=== PATIENT | male | born 1985 | race Caucasian/White ===

== ENCOUNTER 2016-11-03 11:25 | Emergency (ER) | payer BC ==
--- NOTE | 2016-11-03 13:15 | DIAGNOSTIC IMAGING REPORT ---
PROCEDURE: US VENOUS - RIGHT EXT INDICATION: PAIN TECHNIQUE: Duplex sonography of the deep venous system in the right lower extremity was performed. Compression and augmentation techniques were used. COMPARISON: None. FINDINGS: Each interrogated segment of deep vein from the common femoral vein into the calf veins demonstrates normal compressibility, augmentation and/or color Doppler flow without filling defect. No evidence of significant soft-tissue edema, soft-tissue mass or cyst. IMPRESSION: 1. No deep venous thrombosis in the right lower extremity.
--- NOTE | 2016-11-03 14:19 | ED ORDER SUMMARY ---
..... Patient: CARLY GOMEZ OrderSheet [facility] VisitID: [id number] [address] [place] [address] 31y, M Registration Date/Time: 11/03/2016 ORDER SHEET Weight: 70.3 kg (stated) Allergies: None GENERAL ORDERS: CBC w Diff Urgent (11:49 11/03/2016 Huan TUCKER) (Ack 11:50 Jose Daniel) (11:58 JSanders R.N.) CMP Urgent (11:49 11/03/2016 Huan TUCKER) (Ack 11:50 Jose Daniel) (11:58 JSanders R.N.) PT with INR Urgent (11:49 11/03/2016 Huan TUCKER) (Ack 11:50 Jose Daniel) (11:58 JSanders R.N.) PTT Urgent (11:49 11/03/2016 Huan TUCKER) (Ack 11:50 Jose Daniel) (11:58 JSanders R.N.) Amylase Urgent (11:49 11/03/2016 Huan TUCKER) (Ack 11:50 Jose Daniel) (11:58 JSanders R.N.) Lipase Urgent (11:49 11/03/2016 Huan TUCKER) (Ack 11:50 Jose Daniel) (11:58 JSanders R.N.) D-Dimer Urgent (11:49 11/03/2016 Huan TUCKER) (Ack 11:50 Jose Daniel) (11:58 JSanders R.N.) US Venous Right Urgent (11:49 11/03/2016 Huan TUCKER) (Ack 11:50 Jose Daniel) (13:08 JSanders R.N.) MEDICATION ORDERS: IV FLUIDS: IV Saline Lock (11:49 11/03/2016 Huan TUCKER) (11:58 JSanders R.N.) ORDER SHEET NOTES: [Electronically signed by Jenn Casey R.N. (14:31 11/03/2016)] [Electronically signed by Paul Leone MD (22:02 11/04/2016)] [Electronically locked/signed by Jenn Casey R.N. (14:31 11/03/2016)]
--- NOTE | 2016-11-03 14:19 | ED ORDER SUMMARY ---
..... Patient: CARLY GOMEZ OrderSheet [facility] VisitID: [id number] [address] [place] [address] 31y, M Registration Date/Time: 11/03/2016 ORDER SHEET Weight: 70.3 kg (stated) Allergies: None GENERAL ORDERS: CBC w Diff Urgent (11:49 11/03/2016 Huan TUCKER) (Ack 11:50 Jose Daniel) (11:58 JSanders R.N.) CMP Urgent (11:49 11/03/2016 Huan TUCKER) (Ack 11:50 Jose Daniel) (11:58 JSanders R.N.) PT with INR Urgent (11:49 11/03/2016 Huan TUCKER) (Ack 11:50 Jose Daniel) (11:58 JSanders R.N.) PTT Urgent (11:49 11/03/2016 Huan TUCKER) (Ack 11:50 Jose Daniel) (11:58 JSanders R.N.) Amylase Urgent (11:49 11/03/2016 Huan TUCKER) (Ack 11:50 Jose Daniel) (11:58 JSanders R.N.) Lipase Urgent (11:49 11/03/2016 Huan TUCKER) (Ack 11:50 Jose Daniel) (11:58 JSanders R.N.) D-Dimer Urgent (11:49 11/03/2016 Huan TUCKER) (Ack 11:50 Jose Daniel) (11:58 JSanders R.N.) US Venous Right Urgent (11:49 11/03/2016 Huan TUCKER) (Ack 11:50 Jose Daniel) (13:08 JSanders R.N.) MEDICATION ORDERS: IV FLUIDS: IV Saline Lock (11:49 11/03/2016 Huan TUCKER) (11:58 JSanders R.N.) ORDER SHEET NOTES: [Electronically signed by Jenn Casey R.N. (14:31 11/03/2016)] [Electronically signed by Paul Leone MD (22:02 11/04/2016)] [Electronically locked/signed by Jenn Casey R.N. (14:31 11/03/2016)]
--- NOTE | 2016-11-03 14:19 | ED NURSING NOTES ---
Clinical Report - Nurses [facility] [place] [address] [place] [address] 11/03/2016 11:28 [id number] TRI[facility] Triage time 11:34 Nov 03 2016. Acuity: LEVEL 4. Chief Complaint: RIGHT LOWER EXTREMITY PAIN. Location of symptoms- right thigh, right knee and right leg (Patient complaining of pain medial right leg). 11:40 11/03/16. SEPSIS SCREEN: Sepsis Screen. Negative (no infection suspected/documented). RICKEY COMA SCORE: Rickey Coma Scale: 15- eyes open spontaneously (4); best verbal response- oriented x 4 (5); best motor response- obeys commands (6). --11:40 Jenn Casey R.N. 11:34 11/03/16. BP: 118/65 (regular adult cuff) taken on the left arm, while sitting. HR: 66. RR: 16 (regular). O2 saturation: 100% on room air. Temp: 97.9 F (oral). Pain level now: 12/20. --11:40 Jenn Casey R.N. Weight: 70.3 kg stated. Height/Length: 67 inches Per Patient. BMI: 24.3. --11:37 Jenn Casey R.N. Medications None. --11:36 Jenn Casey R.N. Allergies None. --11:36 Jenn Casey R.N. History Arrived by private vehicle. Historian: patient. Accompanied by family. Primary physician (Dr Hand/[place]). No injury occurred. This occurred (Thursday last week). Provoking / relieving factors: (leg relaxed not much pain, when stretched out pain gets worse). Treatment PATIENT CASE COORDINATOR: None. SOCIAL HX: Smoker- current status unknown. Regular alcohol use; consumes two beers a week. No drug use. No infectious disease exposure. ABUSE ASSESSMENT: No report of abuse. --11:40 Jenn Casey R.N. PROBLEMS: Eye Pain. --11:36 Jenn Casey R.N. ADDITIONAL SURGERIES: no known surgeries. Interventions ID band on patient. To treatment room. --11:40 Jenn Casey R.N. PHYSICAL ASSESSMENT 11:41 11/03/16. Ambulatory to room. GENERAL / NEURO / PSYCH: Oriented X 4. Alert. Appears in no acute distress. EXTREMITIES: Extremity pulses are within normal limits. Extremities exhibit normal ROM. No lower extremity edema. Normal gait. Right thigh: (No deformity noted or swelling, patient just complains of pain). SKIN: Skin intact. Skin is warm. --11:41 Jenn Casey R.N. NURSING PROGRESS NOTES 11:41 11/03/16. The plan of care for this patient has been created. Monitoring of patient in place. Reassurance given. Two patient identifiers checked. Call light placed in reach. Side rails up x 1. Bed placed in lowest position. Brakes of bed on. Patient ready for evaluation- chart flagged and ED physician notified. --11:41 Jenn Casey R.N. 11:58 11/03/2016 Site #1 started via IV in the left antecubital space with an 20g angiocath, with aseptic technique and good blood return; one attempt. Blood drawn: rainbow set. Labeled in the presence of the patient and sent to the lab. Saline lock flushed with 10 mL saline. --11:58 Jenn Casey R.N. 12:25 11/03/16. --12:25 Jenn Casey R.N. 12:24 11/03/16. BP: 113/59 (regular adult cuff) taken on the right arm, while sitting. HR: 77. RR: 16 (regular). O2 saturation: 100% on room air. Pain level now: 10/20. --12:25 Jenn Casey R.N. 12:26 11/03/16. ( Patient waiting for U/S). --12:26 Jenn Casey R.N. late entry - 13:00 11/03/16. ( Patient finished with U/S). --13:12 Jenn Casey R.N. 13:38 11/03/16. --13:38 Jenn Casey R.N. 13:36 11/03/16. BP: 121/67 (regular adult cuff) taken on the right arm, while sitting. HR: 73. RR: 16. O2 saturation: 98% on room air. Pain level now: 11/19. --13:38 Jenn Casey R.N. DISPOSITION / DISCHARGE 14:30 11/03/2016 Site #1 removed upon discharge. Bandaid applied. --14:30 Jenn Casey R.N. 14:30 11/03/16. Condition at departure: unchanged. No learning barriers present. Discharge instructions provided and reviewed with the patient. Reviewed medication(s) side effects, precautions and dosing information. Medication(s) for home use given to the patient per protocol. Activity restrictions (rest) reviewed. Patient verbalized understanding. Written instructions provided in Surinamese. The patient was discharged by the physician. He was discharged home and accompanied by spouse. He left the Emergency Department ambulatory and via private vehicle. Spouse driving. --14:30 Jenn Casey R.N. 14:28 11/03/16. BP: 109/74 (regular adult cuff) taken on the left arm, while sitting. HR: 61. RR: 16. O2 saturation: 97% on room air. Temp: 98 F (oral). Pain level now: 10/20. --14:30 Jenn Casey R.N. Departure time: 14:Nov 03 2016. --14:30 Jenn Casey R.N. Locked/Released at 11/03/2016 14:31 by Jenn Casey R.N.
--- NOTE | 2016-11-03 14:19 | ED CLINICAL REPORT ---
Clinical Report - Physicians/Mid Levels [facility] [address] [place] [address] 11/03/2016 11:28 Patient: CARLY GOMEZ Time Seen: 11:48. Arrived- By private vehicle. Historian- patient. HISTORY OF PRESENT ILLNESS Chief Complaint: LOWER EXTREMITY PAIN. Severity is described as being moderate. The quality is noted to be sharp. It is described as radiating to the right lower extremity. This started about ago and is still present. It was abrupt in onset and has been constant and waxing/waning. Symptoms located in the area of the right thigh, right leg and right foot. The patient has not had redness. No swelling, bladder dysfunction, bowel dysfunction, sensory loss or motor loss. No difficulty walking. Patient denies an injury. Similar symptoms previously: None. REVIEW OF SYSTEMS No chills, fever, sweats, chest pain or cough. No pedal edema, palpitations, abdominal pain, black stools or bloody stools. No constipation, nausea or vomiting. He has had mild difficulty breathing (yesterday and this morning). He has had intermittent diarrhea (chronically). All systems otherwise negative, except as recorded above. PAST HISTORY ( Primary physician (Dr Hand/[place])). Problems: Eye Pain. Additional Surgeries: no known surgeries. Medications: None. Allergies: None. SOCIAL HISTORY Never smoker. Regular alcohol use; consumes two beers a week. No drug use. Residence: [place]. FAMILY HISTORY Denies family medical history. ADDITIONAL NOTES The nursing notes have been reviewed. PHYSICAL EXAM Vital Signs: 11/03/2016 11:34 BP: 118/65. HR: 66. RR: 16. O2 saturation: 100%. Temp: 97.9 F. Pain level now: 6/10. Have been reviewed. Appearance: Alert. No acute distress. Eyes: Pupils equal, round and reactive to light. ENT: Pharynx normal. Neck: Normal inspection. Neck supple. CVS: Normal heart rate and rhythm. Heart sounds normal. Respiratory: No respiratory distress. Breath sounds normal. Abdomen: Soft and nontender. No organomegaly. Back: Normal inspection. No tenderness. Skin: Skin warm and dry. Normal skin color. Normal skin turgor. Extremities: No lower extremity edema. No signs of infection involving the lower extremities. No lower extremity edema. Mild right-sided calf tenderness. Extremities otherwise negative. Neuro, Vascular and Tendons: No pulse deficit present. LABS, X-RAYS, AND EKG Lower Extremity Sonography: Negative exam. RLE Discussed with the US tech. The exam was performed by a nail technician teacher. The study was independently viewed by me. Laboratory Tests: CBC w Diff: (FIDEL: 11/03/2016 11:55) ( MsgRcvd 11/03/2016 12:07) Final results Test Result Flag Units (Reference) WHITE BLOOD COUNT 11.4 K/uL (4.5-11.5) RED BLOOD COUNT 5.13 M/uL (4.50-5.90) HEMOGLOBIN 15.6 gm/dL (13.5-17.5) HEMATOCRIT 45.7 % (41.0-53.0) MEAN CELL VOLUME 89 fL (80-100) MEAN CORPUSCULAR HGB 30 pg (26-34) MEAN CORPUSCULAR HGB CONC 34 g/dL (31-37) RED CELL DISTRIBUTION WIDTH 12.6 % (11.6-14.8) PLATELET COUNT 300 K/uL (150-400) NEUTROPHIL % 79.6 H % (50-75) LYMPH % 12.7 L % (25-40) MONO % 6.1 % (3-14) EOSINOPHIL % 1.5 % (0-4) BASOPHIL % 0.1 % (0-2) PT with INR: (FIDEL: 11/03/2016 11:55) ( MsgRcvd 11/03/2016 12:17) Final results Test Result Flag Units (Reference) INR 1.0 (0.8-1.2) Low Intensity Therapy: INR 1.5-2.0 PT range 18.5-23.1Mod.Intensity Therapy: INR 2.0-3.0 PT range 23.1-31.5High Intensity Therapy: INR 2.5-3.5 PT range 27.4-35.5High Intensity Therapy 2: INR 3.0-4.0 PT range 31.5-39.3 APTT 25 SECONDS (24-34) D-DIMER QUANTITATIVE < 0.27 L ug/mLFEU (0.27-0.52) The primary value of this quantitative assay relates toits negative predictive value (i.e. exclusion) of pulmonaryembolism/deep vein thrombosis/DIC.Elevated levels of d-dimer may also occur with:, age, cancer, inflammation, liver disease,post-op, infection, hematoma, coronary disease, peripheralarteriopathy, bleeding disorders and thrombolytic treatment.Results should be correlated with other clinical andradiological data.Testing Methodology: Latex Immunoassay CMP: (FIDEL: 11/03/2016 11:55) ( MsgRcvd 11/03/2016 12:50) Final results Test Result Flag Units (Reference) GLUCOSE 109 mg/dL (70-110) BUN 12 mg/dL (7-18) CREATININE 1.0 mg/dL (0.6-1.3) Estimated GFR >60 mL/min Estimated GFR- >60 mL/min Note: Persistent reduction over 3 months in eGFR<60 mL/min/1.73 m2 defines CKD. Patients with eGFR values>=60 mL/min/1.73 m2 may also have CKD if evidence ofpersistent proteinuria. Additional information may be foundat www.[email or web address].org. SODIUM 139 mmol/L (136-145) POTASSIUM 3.5 mmol/L (3.5-5.1) CHLORIDE 103 mmol/L (98-107) CARBON DIOXIDE 28 mmol/L (21-32) CALCIUM 9.0 mg/dL (8.5-10.1) TOTAL PROTEIN 7.2 g/dL (6.4-8.2) ALBUMIN 3.8 g/dL (3.3-5.0) BILIRUBIN, TOTAL 0.8 mg/dL (0.0-1.0) ALKALINE PHOSPHATASE 83 U/L (46-116) AST (SGOT) 20 U/L (15-37) ALT (SGPT) 26 U/L (12-78) LIPASE 189 U/L (73-393) AMYLASE 70 U/L (25-115) . PROGRESS AND PROCEDURES Course of Care: Patient is stable. Patient/family counseled. Old medical records ordered. Disposition: Discharged. Condition: stable. CLINICAL IMPRESSION Acute left thigh and lower leg pain. INSTRUCTIONS No strenuous activity until better. You may walk and bear weight as tolerated. Warnings: Further evaluation is necessary. GENERAL WARNINGS: Return or contact your physician immediately if your condition worsens or changes unexpectedly, if not improving as expected, or if other problems arise. OTC Medications: Motrin (available over the counter): take according to label instructions. Follow-up: Follow up with your doctor in four days. Call for the next available appointment. Understanding of the discharge instructions verbalized by patient. (Electronically signed by Paul Leone MD 11/04/2016 22:02)
--- NOTE | 2016-11-03 14:19 | ED NURSING NOTES ---
Clinical Report - Nurses [facility] [place] [address] [address] [place] [address] 11/03/2016 11:28 [id number] Triage time 11:34 Nov 03 2016. Acuity: LEVEL 4. Chief Complaint: RIGHT LOWER EXTREMITY PAIN. Location of symptoms- right thigh, right knee and right leg (Patient complaining of pain medial right leg). 11:40 11/03/16. SEPSIS SCREEN: Sepsis Screen. Negative (no infection suspected/documented). RICKEY COMA SCORE: Rickey Coma Scale: 15- eyes open spontaneously (4); best verbal response- oriented x 4 (5); best motor response- obeys commands (6). --11:40 Jenn Casey R.N. 11:34 11/03/16. BP: 118/65 (regular adult cuff) taken on the left arm, while sitting. HR: 66. RR: 16 (regular). O2 saturation: 100% on room air. Temp: 97.9 F (oral). Pain level now: 12/20. --11:40 Jenn Casey R.N. Weight: 70.3 kg stated. Height/Length: 67 inches Per Patient. BMI: 24.3. --11:37 Jenn Casey R.N. Medications None. --11:36 Jenn Casey R.N. Allergies None. --11:36 Jenn Casey R.N. History Arrived by private vehicle. Historian: patient. Accompanied by family. Primary physician (Dr Hand/[place]). No injury occurred. This occurred (Thursday last week). Provoking / relieving factors: (leg relaxed not much pain, when stretched out pain gets worse). Treatment MINING DETAIL DRAFTSPERSON: None. SOCIAL HX: Smoker- current status unknown. Regular alcohol use; consumes two beers a week. No drug use. No infectious disease exposure. ABUSE ASSESSMENT: No report of abuse. --11:40 Jenn Casey R.N. PROBLEMS: Eye Pain. --11:36 Jenn Casey R.N. ADDITIONAL SURGERIES: no known surgeries. Interventions ID band on patient. To treatment room. --11:40 Jenn Casey R.N. PHYSICAL ASSESSMENT 11:41 11/03/16. Ambulatory to room. GENERAL / NEURO / PSYCH: Oriented X 4. Alert. Appears in no acute distress. EXTREMITIES: Extremity pulses are within normal limits. Extremities exhibit normal ROM. No lower extremity edema. Normal gait. Right thigh: (No deformity noted or swelling, patient just complains of pain). SKIN: Skin intact. Skin is warm. --11:41 Jenn Casey R.N. NURSING PROGRESS NOTES 11:41 11/03/16. The plan of care for this patient has been created. Monitoring of patient in place. Reassurance given. Two patient identifiers checked. Call light placed in reach. Side rails up x 1. Bed placed in lowest position. Brakes of bed on. Patient ready for evaluation- chart flagged and ED physician notified. --11:41 Jenn Casey R.N. 11:58 11/03/2016 Site #1 started via IV in the left antecubital space with an 20g angiocath, with aseptic technique and good blood return; one attempt. Blood drawn: rainbow set. Labeled in the presence of the patient and sent to the lab. Saline lock flushed with 10 mL saline. --11:58 Jenn Casey R.N. 12:25 11/03/16. --12:25 Jenn Casey R.N. 12:24 11/03/16. BP: 113/59 (regular adult cuff) taken on the right arm, while sitting. HR: 77. RR: 16 (regular). O2 saturation: 100% on room air. Pain level now: 10/20. --12:25 Jenn Casey R.N. 12:26 11/03/16. ( Patient waiting for U/S). --12:26 Jenn Casey R.N. late entry - 13:00 11/03/16. ( Patient finished with U/S). --13:12 Jenn Casey R.N. 13:38 11/03/16. --13:38 Jenn Casey R.N. 13:36 11/03/16. BP: 121/67 (regular adult cuff) taken on the right arm, while sitting. HR: 73. RR: 16. O2 saturation: 98% on room air. Pain level now: 11/19. --13:38 Jenn Casey R.N. DISPOSITION / DISCHARGE 14:30 11/03/2016 Site #1 removed upon discharge. Bandaid applied. --14:30 Jenn Casey R.N. 14:30 11/03/16. Condition at departure: unchanged. No learning barriers present. Discharge instructions provided and reviewed with the patient. Reviewed medication(s) side effects, precautions and dosing information. Medication(s) for home use given to the patient per protocol. Activity restrictions (rest) reviewed. Patient verbalized understanding. Written instructions provided in Mosotho. The patient was discharged by the physician. He was discharged home and accompanied by spouse. He left the Emergency Department ambulatory and via private vehicle. Spouse driving. --14:30 Jenn Casey R.N. 14:28 11/03/16. BP: 109/74 (regular adult cuff) taken on the left arm, while sitting. HR: 61. RR: 16. O2 saturation: 97% on room air. Temp: 98 F (oral). Pain level now: 10/20. --14:30 Jenn Casey R.N. Departure time: 14:Nov 03 2016. --14:30 Jenn Casey R.N. Locked/Released at 11/03/2016 14:31 by Jenn Casey R.N.
--- NOTE | 2016-11-04 22:02 | ED MED RECONCILIATION SUMMARY ---
Patient: CARLY GOMEZ Medication Reconciliation Report [facility] VisitID: [id number] [address] [place] [address] 31y, M Registration Date/Time: 11/03/2016 Weight: 70.3 kg Height/Length: 67 in. BMI: 24.3 ALLERGIES: None The patient's Home Medications are listed below: NONE. The source(s) of the original Home Medication information: Not obtained. The following Medications were given to the patient in the Emergency Department: None. The following Medications were prescribed to the patient: Motrin (available over the counter): take according to label instructions. -- Paul Leone MD
--- NOTE | 2016-11-04 22:02 | ED MED RECONCILIATION SUMMARY ---
Patient: CARLY GOMEZ Medication Reconciliation Report [facility] VisitID: [id number] [address] [place] [address] 31y, M Registration Date/Time: 11/03/2016 Weight: 70.3 kg Height/Length: 67 in. BMI: 24.3 ALLERGIES: None The patient's Home Medications are listed below: NONE. The source(s) of the original Home Medication information: Not obtained. The following Medications were given to the patient in the Emergency Department: None. The following Medications were prescribed to the patient: Motrin (available over the counter): take according to label instructions. -- Paul Leone MD
--- NOTE | 2016-11-04 22:02 | ED DISCHARGE INSTRUCTIONS ---
Patient: CARLY GOMEZ General Instructions [facility] VisitID: [id number] [place] [address] 31y, M Registration Date/Time: 11/03/2016 Acute left thigh and lower leg pain. INSTRUCTIONS No strenuous activity until better. You may walk and bear weight as tolerated. Warnings: Further evaluation is necessary. GENERAL WARNINGS: Return or contact your physician immediately if your condition worsens or changes unexpectedly, if not improving as expected, or if other problems arise. OTC Medications: Motrin (available over the counter): take according to label instructions. Follow-up: Follow up with your doctor in four days. Call for the next available appointment. Understanding of the discharge instructions verbalized by patient. ADDITIONAL INFORMATION Myofascial Pain Syndrome: Fibrositis Your pain is caused by a state of chronic muscle tension. This condition is called by various names: myofascial pain, fibrositis and trigger point pain. This can also be due to mechanical stress (such as working at a computer terminal for long periods; or work that requires repetitive motions of the arms or hands) or emotional stress (such as problems on the job or in your personal life). Sometimes there is no obvious cause. The pain can occur in the area of the muscle spasm or at a site distant to it. For example, spasm of a neck muscle can cause headache. Spasm of the muscle near the shoulder blade can cause pain shooting down the arm. Home Care: Try to identify the factors that may be causing your problem and change them: If you feel thatemotional stressis a cause of your pain, learn methods to deal more effectively with the stress in your life. These may include regular exercise, muscle relaxation techniques, meditation or simply taking time out for yourself. Consult your doctor or go to a local bookstore and review the many books and tapes available on the subject of stress reduction. If you feel that physical stress is a cause for your pain, try to modify any poor work habits. You may use acetaminophen (Tylenol) or ibuprofen (Motrin, Advil) to control pain, unless another medicine was prescribed. [NOTE: If you have chronic liver or kidney disease or ever had a stomach ulcer or GI bleeding, talk with your doctor before using these medicines.] The use of heat to the muscle (hot compress or heating pad) will be helpful to reduce muscle spasm. Some persons get relief with ice packs. Apply an ice pack (crushed or cubed ice in a plastic bag, wrapped in a towel) for 20 minutes at a time as needed. Use the method that feels best to you. Massaging the trigger point and stretching out the muscleare an important parts of prevention and treatment. Trigger point massage can be done by first applying heat to the area to warm and prepare the muscle. Have someone apply steady thumb pressure directly on the knot in the muscle (the most tender point) for 30 seconds. Release the pressure, then massage the surrounding muscle. Repeat the process, applying more pressure to the trigger point each time. Do this up to the limit of pain. With each treatment, the trigger point should become less tender and the pain should decrease. You can apply local pressure to trigger points in the back by lying on the floor with a tennis ball under the trigger point. Follow Up with your doctor as advised or if not improving within the next week. It may be necessary for you to receive physical therapy if you do not respond to home treatment alone. Get Prompt Medical Attention if any of the following occur: If your trigger point is in the chest muscles, observe for pain that becomes more severe, lasts longer, or spreads into your shoulder/arm, neck or back; you develop trouble breathing, sweating, nausea or vomiting in association with chest pain If you develop weakness or numbness in an extremity If your pain worsens, regardless of its location Ibuprofen Oral tablet What is this medicine? IBUPROFEN (eye BYOO proe fen) is a non-steroidal anti-inflammatory drug (NSAID). It is used for dental pain, fever, headaches or migraines, osteoarthritis, rheumatoid arthritis, or painful monthly periods. It can also relieve minor aches and pains caused by a cold, flu, or sore throat. How should I use this medicine? Take this medicine by mouth with a glass of water. Follow the directions on the prescription label. Take this medicine with food if your stomach gets upset. Try to not lie down for at least 10 minutes after you take the medicine. Take your medicine at regular intervals. Do not take your medicine more often than directed. A special MedGuide will be given to you by the pharmacist with each prescription and refill. Be sure to read this information carefully each time. Talk to your sifting operator regarding the use of this medicine in children. Special care may be needed. What side effects may I notice from receiving this medicine? Side effects that you should report to your doctor or health healthcare or medical as soon as possible: allergic reactions like skin rash, itching or hives, swelling of the face, lips, or tongue black or bloody stools, blood in the urine or in vomit breathing problems changes in vision chest pain general ill feeling or flu-like symptoms nausea or vomiting redness, blistering, peeling or loosening of the skin, including inside the mouth slurred speech or weakness on one side of the body stomach pain unexplained weight gain or swelling unusually weak or tired yellowing of eyes or skin Side effects that usually do not require medical attention (report to your doctor or health healthcare or medical if they continue or are bothersome): constipation or diarrhea dizziness gas or heartburn stomach upset What may interact with this medicine? Do not take this medicine with any of the following medications: cidofovir ketorolac methotrexate pemetrexed This medicine may also interact with the following medications: alcohol aspirin diuretics lithium other drugs for inflammation like prednisone warfarin What if I miss a dose? If you miss a dose, take it as soon as you can. If it is almost time for your next dose, take only that dose. Do not take double or extra doses. Where should I keep my medicine? Keep out of the reach of children. Store at room temperature between 15 and 30 degrees C (59 and 86 degrees F). Keep container tightly closed. Throw away any unused medicine after the expiration date. What should I tell my health care provider before I take this medicine? They need to know if you have any of these conditions: asthma cigarette smoker drink more than 3 alcohol containing drinks a day heart disease or circulation problems such as heart failure or leg edema (fluid retention) high blood pressure kidney disease liver disease stomach bleeding or ulcers an unusual or allergic reaction to ibuprofen, aspirin, other NSAIDS, other medicines, foods, dyes, or preservatives or trying to get breast-feeding What should I watch for while using this medicine? Tell your doctor or healthcare professional if your symptoms do not start to get better or if they get worse. This medicine does not prevent heart attack or stroke. In fact, this medicine may increase the chance of a heart attack or stroke. The chance may increase with longer use of this medicine and in people who have heart disease. If you take aspirin to prevent heart attack or stroke, talk with your doctor or health healthcare or medical. Do not take other medicines that contain aspirin, ibuprofen, or naproxen with this medicine. Side effects such as stomach upset, nausea, or ulcers may be more likely to occur. Many medicines available without a prescription should not be taken with this medicine. This medicine can cause ulcers and bleeding in the stomach and intestines at any time during treatment. Ulcers and bleeding can happen without warning symptoms and can cause . To reduce your risk, do not smoke cigarettes or drink alcohol while you are taking this medicine. You may get drowsy or dizzy. Do not drive, use machinery, or do anything that needs mental alertness until you know how this medicine affects you. Do not stand or sit up quickly, especially if you are an older patient. This reduces the risk of dizzy or fainting spells. This medicine can cause you to bleed more easily. Try to avoid damage to your teeth and gums when you brush or floss your teeth. You have been given the following additional information: Myofascial Pain Syndrome Ibuprofen Oral tablet No strenuous activity until better. You may walk and bear weight as tolerated. (Electronically signed by Paul Leone MD 11/04/2016 22:02)
--- NOTE | 2016-11-04 22:02 | ED MAR SUMMARY ---
..... Medication Administration Record [facility] [address] [place], [place] [id number] Patient: CARLY GOMEZ Visit ID: [id number] 31y, M Weight: 70.3 kg Height/Length: 67 in BMI: 24.3 ALLERGIES: None
--- NOTE | 2016-11-04 22:02 | ED MAR SUMMARY ---
..... Medication Administration Record [facility] [address] [place], [place] [id number] Patient: CARLY GOMEZ Visit ID: [id number] 31y, M Weight: 70.3 kg Height/Length: 67 in BMI: 24.3 ALLERGIES: None
== END 2016-11-03 14:30 | disposition home or self-care (01) ==
LOC: ED SRH 11:25
DX: M79.651 Pain in right thigh (principal); M79.661 Pain in right lower leg